=== PATIENT | female | born 2005 ===

== ENCOUNTER 2024-10-21 08:00 | Outpatient (RCR) | payer OTHER, SELFPAY ==
[2024-10-17 09:42] VITALS: BP 102/60; PULSE 84; TEMP 36.7
--- NOTE | 2024-10-20 10:58 | HO.PHP ---
PHP staff member met with Maritza due to her leaving the first group of the day. PHP staff member explored what was occurring. Maritza disclosed that there was a disagreement with a group member who she described the person as the one with the . Maritza stated that she had made a comment prior to the group to an individual stating that she feels comfortable with them because they are both black. Maritza noted that this was brought up in the group context, in which she was expressing that the other individual was making comments around that there may be other people in the room who are black as well. Maritza disclosed that she voiced that they can agree to disagree and that she was not going to start a fight with a geriatric bitch. Maritza then found it ironic that she had to explain this to a white individual and was being vulgar throughout the conversation because she said that a white person won't understand it. PHP staff member informed her that she is right that she won't understand that, she stated that she is simply trying to hear what the situation was. Maritza mentioned she is not about to start a race war here. PHP staff stated we don't want that to occur and informed her that this is supposed to be a safe environment. Maritza expressed not feeling safe in this environment and doesn't want to listen to people trauma dump. Maritza mentioned that she is in attendance to program because she needs a PCP and medications. PHP staff member explored with Maritza is going to be able to complete this program because we are not a program meant for just medications, it is apart of what we do but we also encourage individuals to process in the group setting. Maritza feels as though this is what she needs to do and feels she can complete the groups. PHP staff member was receptive and continued to engage in reflective listening. PHP staff member encouraged Maritza to implement her coping skills and encouraged her to return to group when feeling ready. Maritza was receptive.
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
--- NOTE | 2024-10-22 15:39 | HO.PHP ---
Maritza did not arrive to [facility] for group this morning. [facility] staff attempted to contact her, a voicemail was left however Maritza did not call back. Both of pt's emergency contacts were called, one of them, her friend Seamus, (known to [facility]) did call [facility] back stating Maritza was sleeping, that she told him she was taking a rest day and would be in tomorrow. Stated she was safe and he would inform Maritza to contact [facility] when she gets up.
--- NOTE | 2024-10-23 14:40 | HO.PHP ---
Maritza called [facility] and left a message informing staff she will not return to [facility] until next week, said she was safe, no safety concerns., Maritza was called back, and a voicemail left ireminding her of the attendance policy. Pt also informed she will be discharged from [facility] due to her inability to attend, pt was encouraged to return when better able to come in and participate in groups. [facility] staff left Maritza a message requesting she call back to go over her discharge. Pt has not yet called.
== END 2024-10-21 23:59 | disposition home or self-care (01) ==
LOC: HO.PHPA 08:00
PROVIDERS: Visit Provider Psychiatry & Neurology Psychiatry
DX: F63.89 Other impulse disorders (principal); F90.9 Attention-deficit hyperactivity disorder, unspecified type; F39 Unspecified mood [affective] disorder; F43.10 Post-traumatic stress disorder, unspecified; Z79.899 Other long term (current) drug therapy
CPT/HCPCS: 90791; 90853

== ENCOUNTER 2024-11-21 08:47 | Outpatient (RCR) | payer OTHER, SELFPAY ==
--- NOTE | 2024-11-25 14:52 | HO.PHP ---
Maritza Mariscal did not show up for programming today. Pt called, did not respond to voicemail. Edvin's emergency contact did respond, Seamus. Stated she was sleeping and safe, had car trouble. Make Up Operator Helper requested a call back from Maritza, pt did not respond. Make Up Operator Helper called Maritza again regarding plan moving forward. Pt stated she could possibly get a ride to [facility] tomorrow but is uncertain after that. Maritza stated she would like to come back to [facility] and feels she will be able to find a ride daily. Pt encouraged to call [facility] tomorrow to discuss a new start date and if she is eligible for PT1 services. Ptr also encouraged to follow-up with her OP providers at [facility]. Pt agreed. No safety concerns.
== END 2024-11-21 23:59 | disposition home or self-care (01) ==
LOC: HO.IOP 08:47
PROVIDERS: Visit Provider Psychiatry & Neurology Psychiatry
DX: F63.89 Other impulse disorders (principal); F33.2 Major depressive disorder, recurrent severe without psychotic features; F43.10 Post-traumatic stress disorder, unspecified; F39 Unspecified mood [affective] disorder; F90.9 Attention-deficit hyperactivity disorder, unspecified type
CPT/HCPCS: 90791